=== PATIENT | female | born 1990 | race Caucasian/White ===

== ENCOUNTER 2019-02-28 17:40 | Outpatient (REF) | payer BC, SELFPAY ==
[2019-02-28 22:48] LABS: Calculated LDL 111 mg/dL; Cholesterol 193 mg/dL (50-200); HDL Cholesterol 34 mg/dL (40-60); Triglyceride 240 mg/dL (30-150)
== END 2019-02-28 18:00 ==
LOC: NCHCN 17:40
PROVIDERS: PCP Nurse Practitioner Family; Visit Provider Nurse Practitioner Family
DX: R53.83 Other fatigue (principal); F41.8 Other specified anxiety disorders; E66.9 Obesity, unspecified; Z86.79 Personal history of other diseases of the circulatory system
CPT/HCPCS: 80061; 84443

== ENCOUNTER 2021-02-03 16:08 | Outpatient (REF) | payer BC, SELFPAY ==
[2021-02-05 01:36] LABS: COVID-19 RT-PCR UVMMC Result Negative (Negative)
== END 2021-02-03 16:09 | disposition home or self-care (01) ==
LOC: LBN 16:08
PROVIDERS: PCP Nurse Practitioner Family; Visit Provider Family Medicine
DX: Z20.822 Contact with and (suspected) exposure to COVID-19 (principal); J06.9 Acute upper respiratory infection, unspecified
CPT/HCPCS: U0003

== ENCOUNTER 2022-06-01 16:35 | Outpatient (REF) | payer BC, SELFPAY ==
[2022-06-01 21:23] LABS: HGB 13.4 g/dL (11.2-15.7); MCH 29.6 pg (27.0-33.0); MCHC 32.7 % (32.0-36.0); MCV 91 fL (80-95); MPV 9.5 fL (8.0-11.0); Platelet Count 374 10^3/uL (130-400); RBC 4.53 10^6/uL (3.93-5.22); RDW 12.4 % (11.7-14.6); WBC 10.98 10^3/uL (4.4-10.8)
[2022-06-01 21:47] LABS: Anion Gap 10.5 mmol/L (3-11); BUN 16 mg/dL (7-18); CO2 25.5 mmol/L (21.0-32.0); CREATININE 0.9 mg/dL (0.55-1.02); Calcium 9.9 mg/dL (8.5-10.1); Calculated LDL 133 mg/dL (<100); Chloride 102 mmol/L (98-107); Cholesterol 244 mg/dL (<200); Estimated GFR 87.65 (mL/min/1.73m2); Glucose 103 mg/dL (74-106); HDL Cholesterol 38 mg/dL (40-60); Potassium 4.3 mmol/L (3.5-5.1); Sodium 138 mmol/L (136-145); TSH 25.92 uIU/mL (0.36-3.74); Triglyceride 367 mg/dL (<150)
[2022-06-02 14:40] LABS: FREE T4 0.57 ng/dL (0.76-1.46)
== END 2022-06-01 16:36 | disposition home or self-care (01) ==
LOC: NCHCN 16:35
PROVIDERS: PCP Nurse Practitioner Family; Visit Provider Nurse Practitioner Family
DX: E66.8 Other obesity (principal); Z13.29 Encounter for screening for other suspected endocrine disorder; Z13.0 Encounter for screening for diseases of the blood and blood-forming organs and certain disorders involving the immune mechanism; Z13.220 Encounter for screening for lipoid disorders
CPT/HCPCS: 80048; 80061; 85027; 84439; 84443

== ENCOUNTER 2022-08-27 17:26 | Outpatient (REF) | payer BC, SELFPAY ==
[2022-08-27 15:23] LABS: Calculated LDL 135 mg/dL (<100); Cholesterol 217 mg/dL (<200); HDL Cholesterol 42 mg/dL (40-60); TSH 2.54 uIU/mL (0.36-3.74); Triglyceride 204 mg/dL (<150)
[2022-08-27 22:30] LABS: Thyroglobulin Antibody 17 U/mL (<=60); Thyroperoxidase Antibody 1063 U/mL (<=60)
== END 2022-08-27 17:27 | disposition home or self-care (01) ==
LOC: NCHCN 17:26
PROVIDERS: PCP Nurse Practitioner Family; Visit Provider Nurse Practitioner Family
DX: R94.6 Abnormal results of thyroid function studies (principal); E03.9 Hypothyroidism, unspecified; Z13.220 Encounter for screening for lipoid disorders; E66.9 Obesity, unspecified
CPT/HCPCS: 80061; 84443; 86376; 86800

== ENCOUNTER 2022-09-07 10:02 | Outpatient (REF) | payer BC, SELFPAY ==
--- NOTE | 2022-09-07 09:10 | PAPFT_PTH ---
PATIENT: Cordelia Andrew LOC: [facility]#:[id number] AGE/SX: 31/F ROOM: RE09/07/[address]: Briana Faria : 1990 BED: DIS: 09/07/2022 SPEC #: [id number] RECD: 09/07/22 18:20 STATUS: NADINE REDeb #: [id number] ELSY: 09/07/22 09:[address]: Briana Ramos DEPT: [facility] Cytology RECD BY: Mimi Douglas ENTERED: 09/07/22 18:20 SP TYPE: PAPFT OTHR DR: Gorge Busby Tissues: 1 - CX/ENDOCX FOR PAP SMEARS Procedures: PAP THIN PREP/[facility] Screening HPV DNA PROBE Comments: [id number] (CHLAMYDIA/GC)
[2022-09-08 14:19] LABS: Chlamydia Result Negative (Negative); GC Result Negative (Negative)
== END 2022-09-07 10:03 | disposition home or self-care (01) ==
LOC: NCHCN 10:02
PROVIDERS: PCP Dentist; Visit Provider Nurse Practitioner Family
DX: Z11.3 Encounter for screening for infections with a predominantly sexual mode of transmission (principal); Z12.4 Encounter for screening for malignant neoplasm of cervix; Z11.51 Encounter for screening for human papillomavirus (HPV)
CPT/HCPCS: 87491; 87591; 88142; 87624

== ENCOUNTER 2024-04-06 15:01 | Outpatient (REF) | payer BC, SELFPAY ==
[2024-04-06 23:19] LABS: ALT 21 U/L (14-59); AST 21 U/L (15-37); Albumin 4.1 g/dL (3.4-5.0); Alkaline Phosphatase 66 U/L (46-116); Anion Gap 9.1 mmol/L (3-11); BUN 18 mg/dL (7-18); Bilirubin, Total 0.52 mg/dL (0.2-1.0); CO2 25.9 mmol/L (21.0-32.0); CREATININE 0.9 mg/dL (0.55-1.02); Calcium 9.5 mg/dL (8.5-10.1); Chloride 104 mmol/L (98-107); Estimated GFR 86.57 (mL/min/1.73m2); Glucose 99 mg/dL (74-106); Potassium 4.3 mmol/L (3.5-5.1); Sodium 139 mmol/L (136-145); TSH 1.19 uIU/mL (0.36-3.74); Total Protein 7.9 g/dL (6.4-8.2); Vitamin B12 706 pg/mL (193-986)
[2024-04-10 12:35] LABS: Chlamydia Result Negative (Negative); GC Result Negative (Negative)
== END 2024-04-06 15:02 | disposition home or self-care (01) ==
LOC: NCHCN 15:01
PROVIDERS: PCP Dentist; Visit Provider Family Medicine
DX: Z11.3 Encounter for screening for infections with a predominantly sexual mode of transmission (principal); K14.8 Other diseases of tongue; F32.A Depression, unspecified
CPT/HCPCS: 80053; 82306; 87491; 87591; 82607; 84443